=== PATIENT | male | born 1955 | race Caucasian/White ===

== ENCOUNTER → 2017-08-08 | Outpatient (CLI) | payer BC, MEDICARE ==
[~2017-08-08] MED LIST: KEFLEX500 MG PO
== END | disposition home or self-care (01) ==
LOC: US 11:13
DX: R60.0 Localized edema (principal)

== ENCOUNTER → 2021-10-29 | Day surgery (SDC) | payer BC ==
[~2021-10-29] VITALS: Ht 175.2 cm; Wt 123.8 kg
[~2021-10-29] MED LIST changes: +B-100 COMPLEX100 MG PO; +GLIPIZIDE5 MG PO; +MAGNESIUM250 M2 PO; +METFORMIN HYDR500 MG PO; +NORVASC5 MG PO; +PROTONIX40 MG PO; +VITAMIN C500 M4 PO; +XANAX0.5 MG PO
[2021-10-29 07:50] VITALS: BP 178/89
[2021-10-29 08:44] VITALS: BP 137/77
[2021-10-29 08:58] VITALS: BP 144/74
[2021-10-29 09:13] VITALS: BP 125/67
== END | disposition home or self-care (01) ==
LOC: SDC 10-27 09:30
PROVIDERS: ATTEND Surgery
DX: Z12.11 Encounter for screening for malignant neoplasm of colon (principal); Z86.010 Personal history of colon polyps; K29.50 Unspecified chronic gastritis without bleeding; K62.1 Rectal polyp; K57.30 Diverticulosis of large intestine without perforation or abscess without bleeding; K21.9 Gastro-esophageal reflux disease without esophagitis; I10 Essential (primary) hypertension; E11.9 Type 2 diabetes mellitus without complications; Z86.718 Personal history of other venous thrombosis and embolism; Z86.711 Personal history of pulmonary embolism; Z98.890 Other specified postprocedural states; Z79.899 Other long term (current) drug therapy